=== PATIENT | female | born 1990 | race Caucasian/White ===

== ENCOUNTER 2023-07-24 05:59 | Emergency (ER) | payer MEDICAID ==
[2023-07-24] MEDS ORDERED: Acetaminophen 500 MG Tab PO ONE (07:33)
== END 2023-07-24 09:04 | disposition home or self-care (01) ==
LOC: JP.ED 05:59
DX: S92.422A Displaced fracture of distal phalanx of left great toe, initial encounter for closed fracture (principal); F17.210 Nicotine dependence, cigarettes, uncomplicated; Z88.6 Allergy status to analgesic agent; Z88.0 Allergy status to penicillin; Z88.5 Allergy status to narcotic agent; Z88.2 Allergy status to sulfonamides; Z88.8 Allergy status to other drugs, medicaments and biological substances; W18.40XA Slipping, tripping and stumbling without falling, unspecified, initial encounter; Y92.69 Other specified industrial and construction area as the place of occurrence of the external cause
CPT/HCPCS: 73630; 99283; A9270